=== PATIENT | male | born 1955 | race Caucasian/White ===

== ENCOUNTER 2022-04-11 00:44 | Emergency (ER) | payer OTHER ==
[~2022-04-11] VITALS: Ht 182.9 cm; Wt 145.1 kg
[2022-04-11 00:53] VITALS: BP_SYST 138
[2022-04-11] MEDS ORDERED: HYDROcodone/ACETAMIN 5-325 MG TAB (NORCO/ VICODIN) PO ONE (01:00)
--- NOTE | 2022-04-11 01:02 | NUR ---
PT IN H1, PT STATES HE WEARS C-PAP AT NIGHT. AWAITING XRAY OF PT.
--- NOTE | 2022-04-11 01:07 | NUR ---
67 YR OLD MALE AOX4, AMBULATORY PT WITH COMPLAINT OF RIGHT KNEE PAIN STATUS POST FALL. PT STATES HE WAS GETTING SOMETHING OUT OF HIS EYE AND FELL SUDDENLY. MD AT THE BEDSIDE. WILL MONITOR NEEDED
--- NOTE | 2022-04-11 01:39 | NUR ---
Ice pack applied to patient's injured, right knee.
[2022-04-11] MEDS ORDERED: PROCHLORPERAZINE EDISYLATE 10 MG/2 ML VIAL IM ONE (03:45)
[2022-04-11] MEDS ORDERED: MORPHINE 4 MG INJ. 4 MG/ML VIAL IM ONE (03:45)
[2022-04-11] MEDS ORDERED: MORPHINE 4 MG INJ. 4 MG/ML VIAL ONE (03:49)
--- NOTE | 2022-04-11 05:54 | NUR ---
PT SOILED WITH URINE, CLEANED AND ASSISTED TO REPOSITION IN BED. PT ENCOURAGED TO MOVE ON HIS OWN FOR SAFETY. PT PENDING DISPOSITION, WILL MONITOR NEEDED
--- NOTE | 2022-04-11 07:25 | NUR ---
Upon shift resumption pt in bed AOx4 GCS 15 with complaint of right knee pain and lower back pain. Pt reports pain score of 10/10. Will continue to monitor pt. POC to send pt to SNF due to inability to bear weight on affected knee.
[2022-04-11] MEDS ORDERED: IBUPROFEN 800 MG TABLET PO ONE (07:45)
[2022-04-11] MEDS ORDERED: HYDROcodone/ACETAMIN 10-325 MG TAB PO ONE (07:45)
[2022-04-11 07:56] LABS: BASOPHILS # (AUTO) 0.1 K/uL (0.0-0.2); EOSINOPHILS # (AUTO) 0.2 K/uL (0.0-0.4); EOSINOPHILS % (AUTO) 2.9 % (0.0-4.0); HEMATOCRIT 39.1 % (36-54); HEMOGLOBIN 13.2 g/dL (14.0-18.0); LYMPHOCYTES # (AUTO) 1.3 K/uL (1.0-5.5); LYMPHOCYTES % (AUTO) 22.3 % (20.5-51.5); MEAN CORPUSCULAR HEMOGLOBIN 31 pg (27-31); MEAN CORPUSCULAR HGB CONC 34 % (32-36); MEAN CORPUSCULAR VOLUME 92 fL (79.0-98.0); MONOCYTES # (AUTO) 0.4 K/uL (0.0-1.0); MONOCYTES % (AUTO) 6.6 % (1.7-9.3); NEUTROPHILS # (AUTO) 3.8 K/uL (1.8-7.7); NEUTROPHILS % (AUTO) 67.2 % (40.0-70.0); PLATELET COUNT (AUTO) 160 K/uL (130-430); RED BLOOD CELL COUNT(AUTO) 4.28 MIL/uL (4.2-6.2); RED CELL DISTRIBUTION WIDTH 13.9 % (9.0-15.0); WHITE BLOOD COUNT (AUTO) 5.6 K/uL (4.8-10.8)
[2022-04-11 08:03] LABS: ANION GAP 7 (5-15); CALCIUM 8.7 mg/dL (8.4-11.0); CHLORIDE 103 mmol/L (98-107); CREATININE 1.65 mg/dL (0.55-1.30); GLUCOSE 270 mg/dL (70-99); POTASSIUM 3.8 mmol/L (3.5-5.1); SODIUM SERUM 138 mmol/L (136-145); UREA NITROGEN, BLOOD 35 mg/dL (8-21)
[2022-04-11 08:09] LABS: ALANINE AMINOTRANSFERASE 24 U/L (12-78); ALBUMIN 3.2 g/dL (3.4-4.8); ASPARTATE AMINOTRANSFERASE 20 U/L (10-37); TOTAL BILIRUBIN 0.6 mg/dL (0.0-1.0)
--- NOTE | 2022-04-11 09:47 | NUR ---
Pt swabbed for covid; sent to lab.
[2022-04-11 09:53] LABS: GFR AFRICAN AMERICAN 54 mL/min (>90)
[2022-04-11 10:07] LABS: ACETONE, SERUM NEGATIVE (NEGATIVE)
--- NOTE | 2022-04-11 10:44 | NUR ---
Discharge Planning: DCP faxed pt referral for SNF to [facility] P#[phone] F#[phone] DCP to follow up
--- NOTE | 2022-04-11 10:45 | NUR ---
Pt BG level is 262; ER MD notified. Pt given CCHO diet.
--- NOTE | 2022-04-11 11:58 | NUR ---
Spoke w/ Hien at [phone]. Patient accepted [facility] [id number] [id number] # for report [phone]. [facility] to transport at 2 PM. Patient was notified he has $100.00 co pay for [phone]. ER is aware of SNF placement for the patient.
--- NOTE | 2022-04-11 12:26 | NUR ---
Report called to [facility] given to PIERCE Diallo. Pt to be transported approx 1400. Will continue to monitor pt. Pt stable in NAD.
[2022-04-11 12:44] LABS: BILIRUBIN,URINE NEGATIVE (NEGATIVE); BLOOD, URINE NEGATIVE (NEGATIVE); CLARITY/URINE CLEAR (CLEAR); COLOR,URINE YELLOW (YELLOW); GLUCOSE,URINE 3+ (NEGATIVE); KETONES,URINE NEGATIVE (NEGATIVE); LEUKOCYTE ESTERASE ,URINE TRACE (NEGATIVE); NITRITE, URINE NEGATIVE (NEGATIVE); PROTEIN URINE NEGATIVE (NEGATIVE); UROBILINOGEN,URINE 0.2 (0.2-1.0)
--- NOTE | 2022-04-11 12:54 | NUR ---
Pt cleaned and bed changed after pt self urinated.
[2022-04-11 12:58] LABS: RBC,URINE 0-3 /HPF (0-3)
[2022-04-11 12:59] LABS: BACTERIA,URINE None Seen /HPF (None Seen)
[2022-04-11 13:04] VITALS: BP_SYST 159
--- NOTE | 2022-04-11 14:00 | NUR ---
Pt moved to bed H1. Report given to Maye PELAYO to assume care of patient. Ambulance transport ETA 45 minutes.
--- NOTE | 2022-04-11 14:12 | NUR ---
Assumed care of patient after receiving report from PIERCE Molina. Patient is awaiting transfer to SNF. He is resting on gurney in no signs of acute distress. Vital signs are within normal limits, patient is calm and cooperative. Will continue to monitor patient status while waiting for patient transport.
--- NOTE | 2022-04-11 15:28 | NUR ---
Patient given written and verbal discharge instructions and verbalizes understanding. ER Dr. Clarence YA discussed with patient the results and treatment provided. Patient in stable condition. ID arm band removed. Rxs of Naproxen and Percoset given. Patient educated on pain management and to follow up with PMD. Pain Scale 7/10.Opportunity for questions provided and answered. Medication side effect fact sheet provided.
[2022-04-11] MEDS ORDERED: SIMV40TA2 PO (15:48)
[2022-04-11] MEDS ORDERED: GLIP-201 PO (15:48)
[2022-04-11] MEDS ORDERED: LISI40TA13 PO (15:48)
[2022-04-11] MEDS ORDERED: SPIR25TA6 PO (15:48)
[2022-04-11] MEDS ORDERED: METO50TA7 PO (15:48)
[2022-04-11] MEDS ORDERED: METF-518 PO (15:48)
[2022-04-11] MEDS ORDERED: ESCI10TA PO (15:48)
[2022-04-11] MEDS ORDERED: TAMS0.4C96 PO (15:48)
[2022-04-11] MEDS ORDERED: FURO-149 PO (15:48)
== END 2022-04-11 15:28 ==
LOC: SED 00:44
DX: S83.91XA Sprain of unspecified site of right knee, initial encounter (principal); Z20.822 Contact with and (suspected) exposure to COVID-19; Z79.899 Other long term (current) drug therapy; W18.30XA Fall on same level, unspecified, initial encounter; Y93.89 Activity, other specified; Y92.89 Other specified places as the place of occurrence of the external cause; Y99.8 Other external cause status
CPT/HCPCS: 29505; 36415; 71045; 73560; 80053; 81000; 82009; 82550; 82962; 83605; 85025; 87426; 93005; 96372; 97116; 97162; 97530; 99285; J0780; J2270